=== PATIENT | female | born 1955 | race Caucasian/White ===

== ENCOUNTER 2020-05-14 11:25 | Inpatient (IN) | payer OTHER ==
[~2020-05-14] VITALS: Ht 160 cm; Wt 61.0 kg
[2020-05-14 11:30] VITALS: BP 141/78
--- NOTE | 2020-05-14 11:38 | NUR ---
PT HAS A FIXATION TO HER TEETH PER VALDEMAR, DAUGHTER. STATES THIS HAS HELPED PT COME IN. PT IS ALERT TO SELF ONLY.
[2020-05-14 11:51] LABS: ABSOLUTE NEUTROPHILS 3.5 thou/uL (1.4-8.2); BASOPHILS 0.7 % (0.0-2.0); EOSINOPHILS 4.2 % (0.0-3.0); HEMATOCRIT 37.2 % (37.0-47.0); HEMOGLOBIN 12.8 gm/dL (12.0-15.0); LYMPHOCYTES 32.6 % (24.0-44.0); MCH 30.1 pg (26.0-34.0); MCHC 34.5 g/dL (28.0-37.0); MCV 87.3 fL (80.0-100.0); MONOCYTES 4.5 % (1.0-8.0); PLATELET COUNT 330 thou/uL (150-400); RBC 4.26 mil/uL (4.20-5.00); RDW 13.2 % (10.5-14.5); WBC 6.1 thou/uL (4.0-11.0)
[2020-05-14 11:56] LABS: URINE BILIRUBIN NEGATIVE (Negative); URINE BLOOD 3+ (Negative); URINE CLARITY SL CLOUDY; URINE COLOR YELLOW; URINE GLUCOSE-RANDOM* NEGATIVE (Negative); URINE KETONES NEGATIVE (Negative); URINE NITRITE-REFLEX NEGATIVE (Negative); URINE PROTEIN (DIPSTICK) TRACE (Negative); URINE SPECIFIC GRAVITY >= 1.030 (1.005-1.035); URINE UROBILINOGEN 0.2 E.U./dl (0.2-1.0)
[2020-05-14 11:59] LABS: URINE LEUKOCYTES-REFLEX 2+ (Negative)
[2020-05-14 12:02] LABS: CALCIUM 8.5 mg/dL (8.5-10.1); CREATININE 0.7 mg/dL (0.6-1.0); POTASSIUM 3.2 mmol/L (3.5-5.1)
[2020-05-14 12:09] LABS: ALBUMIN 3.8 g/dL (3.4-5.0); TOTAL BILIRUBIN 0.2 mg/dL (0.2-1.0); TOTAL PROTEIN 7.2 g/dL (6.4-8.2)
[2020-05-14 12:29] LABS: CASTS None Seen /LPF (None Seen); CRYSTALS None Seen /LPF (None Seen); SQUAMOUS 4-10 Moderate /LPF (0-3)
[2020-05-14 12:31] LABS: URINE RBC 3-10 Few /HPF (0-2)
[2020-05-14 16:37] VITALS: BP 141/78
[2020-05-14 17:10] VITALS: BP 128/71; BP 135/84
--- NOTE | 2020-05-14 19:24 | NUR ---
64 YR admitted from home via ER for paranoia, anxiety and being scared all the time. Per daughter moved here from [place] in December 2019 and requiring constant care and attention. Has not received medical care in approximately 15 yrs per daughter. Hx of using ETOH q day at least 2 drinks with DUI in 2002 or 2003. Only surgery daughter is aware of is cholesectomy. Daughter states she has had a panic disorder for 20 yrs and was on Prozac. After stopping Prozac she started drinking ETOH. Alert to name only. Confused with increased ambulation and mild exit seeking. States she smokes 1 pk cigarettes a day. Breath sounds clear and slightly diminished. O2 sat 98%. Nonproductive cough. Color pink with brisk capillary refill and palpable peripheral pulses. Reg HR auscultated. No edema noted. Independent with voiding. Active bowel sounds over large, rounded, soft abdomen. Daughter states last BM was this AM. Ambulates with regular, steady gait. Needs alot of direction for ADL. Dr. Jurado aware of admit.
[2020-05-14 20:13] VITALS: BP 143/101
[2020-05-15 05:50] LABS: ABSOLUTE NEUTROPHILS 9.2 thou/uL (1.4-8.2); BASOPHILS 0.5 % (0.0-2.0); EOSINOPHILS 0.2 % (0.0-3.0); HEMOGLOBIN 12.4 gm/dL (12.0-15.0); LYMPHOCYTES 12.4 % (24.0-44.0); MCH 29.6 pg (26.0-34.0); MCHC 33.4 g/dL (28.0-37.0); MCV 88.8 fL (80.0-100.0); MONOCYTES 4.8 % (1.0-8.0); PLATELET COUNT 300 thou/uL (150-400); POLYS 82.1 % (36.0-66.0); RBC 4.17 mil/uL (4.20-5.00); RDW 13.3 % (10.5-14.5); WBC 11.3 thou/uL (4.0-11.0)
[2020-05-15 06:02] LABS: CALCIUM 9.1 mg/dL (8.5-10.1); CREATININE 0.7 mg/dL (0.6-1.0); MAGNESIUM 1.6 mg/dL (1.8-2.4)
--- NOTE | 2020-05-15 06:05 | NUR ---
Assumed care of pt @ 1900. Pt calm et cooperative at beginning of shift albeit very intrusive with staff et other pts. Took medication whole but chewed her capsule of antibiotic so may need to have medications crushed in future med passes. Ambulates the halls ad christian with steady gait et was going in et out of other pts rooms all evening. Call placed to [employer] media relations director for order to help calm pt as she was getting increasingly agitated et we could not keep her out of other pts rooms. Order received for Geodon 10mg IM X 1 @ 2145. Pt continued to get increasingly agitated et became combative with staff. Pt was also hitting arms on bed rails, raymond-chair arms, staff, et connolly. Further assessment revealed several bruises to wrists et hands. Bruises may have been partially from staff restraining pt from hitting, punching, et kicking. Call placed to [employer] media relations director again to let him know of further aggression. Oreder received for Geodon 10mg IM X 1 @ 2315. Pt did sleep for approximately 30 minutes in raymond-chair in dayroom. Pt then became aggressive again but was also screaming at the top of her lungs. Call placed to [employer] media relations director who ordered Zyprexa 5mg IM X ! @ 0245. Pt was then able to sleep for approximately 1.5 hours. VSWNL. Health assessment with no abnormalities other than previously noted. Unable to assess SI/HI due to pts cognitive deficit but does not appear to be in any acute emotional distress other than previously noted agitation and aggression. Currently resting in raymond-chair in dayroom with eyes closed. Will continue to monitor per protocol.
[2020-05-15 06:31] LABS: POTASSIUM 2.6 mmol/L (3.5-5.1)
[2020-05-15 07:40] VITALS: BP 112/67
--- NOTE | 2020-05-15 09:06 | EKG ---
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: MAHI : 1955 Requested By: Sunday Carlin Order Number: [id number] MD: Asad Braxton Measurements Intervals [place] Rate: 76 P: 47 NM: 150 QRS: -15 QRSD: 85 T: 6 QT: 514 QTc: 579 Interpretive Statements Sinus rhythm Borderline left axis deviation Poor R wave progression Nonspecific ST segment abnormality Prolonged QT interval No previous ECG available for comparison Electronically Signed On 05-15-2020 9:06:09 CDT by Asad Braxton [email or web address] <ELECTRONICALLY SIGNED> By: Asad Braxton MD, [facility] 05/15/20 0906 1201 1201 Asad Braxton MD, [facility] /EPI
[2020-05-15 10:04] LABS: FOLIC ACID 59.7 ng/mL (8.6-58.9)
--- NOTE | 2020-05-15 10:58 | NUR ---
PATIENT WAS IN BED SLEEPING WHEN CARE ASSUMED, WHEN AWOKEN, PATIENT PACING, WANDERING INTO PEERS ROOMS, SHE IS VERY CONFUSED, CAME OUT OF ROOM WITHOUT PANTS OR UNDERWEAR. IT TOOK TWO STAFF TO ASSIST PATIENT PUT ON UNDERWEAR/PANTS. SHE REQUIRES CONSTANT REDIRECTION. PATIENT REFUSED ALL MORNING MEDICATIONS, INCLUDING POTASSIUM, PATIENT'S POTASSIUM LEVEL IS LOW 2.6. DR. MUNOZ NOTIFIED. DR. CALDERON ALSO NOTIFIED OF PATIENT CHOOSING NOT TO TAKE MEDICATIONS ESPECIALLY POTASSIUM. DR. CALDERON STATES HE WILL CALL BACK TO ADDRESS THAT. PATIENT OFFERED BREAKFAST, SHE CONSUMED ABOUT 25%. PATIENT IS NOT ABLE TO RESPOND APPROPRIATELY TO ASSESSMENT QUESTIONS DUE TO COGNITIVE IMPAIRMENT. PATIENT CURRENTLY SITTING IN DAYROOM QUIETLY, NO SIGN OF ACUTE DISTRESS NOTED AT THIS TIME, WILL CONTINUE TO REDIRECT, AND MONITOR FOR SAFETY.
[2020-05-15 12:18] VITALS: BP 112/67
--- NOTE | 2020-05-15 21:31 | H ---
[facility] [place] [address] HISTORY AND PHYSICAL Name: JV JONES Room #: 524B-B ADM IN M.R.#: [id number] Admission: 05/14/20 Attend Phys: Mukesh Jurado DO Discharge: Date of : 55 Report #: [id number] THIS REPORT FOR: cc: CHELITA - No family physician/PCP FAM - No family physician/PCP Mukesh Jurado DO ~ CC: Mukesh MERLOS physician/PCP DATE OF SERVICE: 05/15/2020 INPATIENT PSYCHIATRIC EVALUATION ATTENDING PHYSICIAN: Mukesh Jurado DO DIRECTOR OF PATIENT CARE: Dov Clark MD REASON FOR ADMISSION: Dementia with behavioral disturbance. SOURCES OF INFORMATION: ER notes, brief interview with the patient and extended telephone conversation with her daughter, Emilie Jones. CHIEF COMPLAINT: Unspecified. HISTORY OF PRESENT ILLNESS: This is a 64-year-old female who is residing in the [place] area since December 2019. There was an attempted admission on the patient at the [facility], that is, [facility]; however, the patient was uncooperative with a stay in there, exit seeking and apparently the facility recommended her to come to [facility] for Geriatric Psychiatry evaluation and treatment. The patient was brought up from [place] at the beginning of the coronavirus pandemic by her daughter Emilie. Emilie works at the [employer]. 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 The patient unfortunately was diagnosed with Alzheimer's related dementia in 2017. The patient has had a difficult life with longstanding alcoholism and possible diagnosis of bipolar disorder. She is . The patient has a son from a prior relationship and then the daughter from a different father, the patient was living in the [facility]. Apparently, she has been taken care by a "friend" and daughter states she was on a wait list for Medicaid Facility, but the daughter felt this would be futile in [place]. FAMILY HISTORY: Her father had Alzheimer's disease. Her mother had bipolar disorder. The last time she drank is unclear, but definitely since December 2019. Additional information gleaned from the Emergency Room is as follows: Apparently, she lives with the son in [place] for more than a decade. The patient had become malnourished and unkempt when she was brought up from [facility] [address] [place] [address] HISTORY AND PHYSICAL Name: NETTE JONESN Room #: 524B-B ADM IN M.R.#: [id number] Admission: 05/14/20 Attend Phys: Mukesh Jurado DO Discharge: Date of : 55 Report #: [id number] [place]. When they moved up initially in December, they place the mother in her own apartment and a daughter would spend 8-10 hour stay with her. She states that it was at this time that she realized that her mother could not really care for herself. She had to spent some extra time in the ER for the COVID PCR, although had additional psychiatric history of panic disorder. SURGICAL HISTORY: Cholecystectomy. SUBSTANCE USE: Disorder for alcohol, sounds like moderate to severe. ALLERGIES: No known allergies. SOCIAL HISTORY: She smokes 1 pack per day. I did put her on the nicotine protocol. REVIEW OF SYSTEMS: From the ER, CONSTITUTIONAL: Denies fever, chills, malaise or unexplained weight change. EYES: Denies eye pain, visual change or discharge. HENT: Denies hearing changes, ear drainage, ear infections, ear pain, neck pain or neck stiffness. RESPIRATORY: Denies cough, shortness of breath, hemoptysis or respiratory distress. CARDIOVASCULAR: Denies chest pain, chest pain with exertion or edema. MUSCULOSKELETAL: Denies back pain, joint pain, muscle weakness or myalgias. SKIN: Denies rash. NEUROLOGIC: Denies weakness, headache, loss of consciousness. Denied SI or HI, or hallucinations. LABORATORY DATA: EKG done in the ER showed QTc of 579, QRS 85, SC interval 150, rate of 76 in sinus rhythm. TSH was high at 10.877. Other laboratories; sodium 146, potassium 3.2, it is actually lower today at 2.6. Chloride 109, bicarbonate 27, anion gap 10, BUN 15, creatinine 0.7, estimated GFR 84, glucose 110, calcium 8.5, total bilirubin 0.2, AST 15, ALT 16, alkaline phosphatase 67, total protein 7.2, albumin 3.8, which is actually within normal limits. White count 6.1, H and H 12.8 and 37.2, and platelet count 330. Urinalysis showed 3+ blood, 2+ leukocyte esterase, 16-25 leukocytes per high power field, moderate bacteria. Culture has been sent. The patient was placed on cephalexin. PHYSICAL EXAMINATION: VITAL SIGNS: This morning, temperature 36.6, pulse 86, respirations 16, blood pressure 112/67, O2 sat 94%. MUSCULOSKELETAL: Disheveled. Normal gait and station. She appears to have a lesion on her nose. Given her history in [place] would be concerned about basal cell carcinoma; however, now this is not the time to attempt to biopsy that lesion. [facility] [address] [place] [address] HISTORY AND PHYSICAL Name: JV JONES Room #: 524B-B ADM IN M.R.#: [id number] Admission: 05/14/20 Attend Phys: Mukesh Jurado, DO Discharge: Date of : 55 Report #: [id number] MENTAL STATUS EXAMINATION: This is a well-developed, somewhat disheveled female appearing older than stated age. Attention impaired. Concentration impaired. Speech slow, soft. Thought process linear and very limited. Thought content focused on environment. Otherwise, generalized poverty of thought. Some psychomotor agitation. She is knocking on doors around unit. mood/affect, anxious costricted, congruent No psychomotor retardation. Denied SI or HI. Denied hopelessness or helplessness. Memory is grossly impaired, but did not formally test it. Insight impaired, judgment impaired. Fund of knowledge well below average. FORMULATION: A 64-year-old female brought in by her family for inpatient evaluation. Current medications ordered. PLAN: Evaluate, stabilize, obtain collateral. ESTIMATED LENGTH OF STAY: 10-14 days. Current medications orders were cyanocobalamin 1000 mcg oral daily, 1000 mcg IM daily for 5 days, it looks like she refused that. Pantoprazole 20 mg p.o. daily, Depakote 750 mg p.o. at bedtime we will start that tonight. Olanzapine 2.5 mg p.o. b.i.d. with IM backup, starting that now. Potassium chloride 40 mEq p.o. x 2 doses, she did take one dose. Nicotine patch daily for now. Otherwise house PRNs. Regarding the patient's capacity to make healthcare decisions, she is lacking as her DPOA for healthcare DPOA, if exist, for general financial measures is inactive. Time spent on this case is 60 minutes, greater than 50% of time was in counseling and coordination of care. STRENGTHS: She is insured, has DPOA and family support. WEAKNESSES: Longstanding alcoholism. DIAGNOSES: Major Neurocognitive Disorder likely due to chronic alcoholism, ? Alzheimers Pathology with Bhevaioral Disturbance, Unspecified Psychosis, Elevated TSH- r/o hashimotos disease showing signs of failure to thrive. The cephalexin has [facility] [address] [place] [address] HISTORY AND PHYSICAL Name: NETTE JONESN Room #: 524B-B ADM IN M.R.#: [id number] Admission: 05/14/20 Attend Phys: Mukesh Jurado DO Discharge: Date of : 55 Report #: [id number] been discontinued by the hospitalist. We will proceed with evaluation and care of her. <ELECTRONICALLY SIGNED> By: Mukesh Jurado DO 05/15/20 2131 1403 1431 Mukesh Jurado DO /nt
--- NOTE | 2020-05-16 05:12 | NUR ---
Assumed care of pt @ 1900. Pt anxious et agitated most of shift. Pt took medications crushed in yogurt without difficulty. Ambulates the halls ad christian with steady gait et tends to intrusively go into other pt's rooms. Can be mildly aggressive when redirected but tends to get more aggressive as the shift goes along. VSWNL. Health asessment with no abnormalities other than previously noted. Unable to assess SI/HI due to pt's cognitive deficit but does not demonstrate any signs or symptoms of acute emotional distress at present time. Pt became increasingly agitated as the noc went along. Provider patient observation assistant ordered olanzapine 7.5mg IM @ 2233. Provider called back after one hour to check the status of the pt. Pt was still agitated so provider ordered Haldol 5mg IM et Ativan 1mg IM to be administered at 2354. Currently client is resting in vanessa-chair in dayroom with eyes closed. Will continue to monitor per protocol.
[2020-05-16 06:54] LABS: BASOPHILS 0.5 % (0.0-2.0); EOSINOPHILS 2.6 % (0.0-3.0); HEMOGLOBIN 12.9 gm/dL (12.0-15.0); LYMPHOCYTES 22.3 % (24.0-44.0); MCHC 33.9 g/dL (28.0-37.0); MCV 88.6 fL (80.0-100.0); MONOCYTES 8.2 % (1.0-8.0); PLATELET COUNT 303 thou/uL (150-400); POLYS 66.4 % (36.0-66.0); RBC 4.29 mil/uL (4.20-5.00); WBC 7.5 thou/uL (4.0-11.0)
[2020-05-16 07:14] LABS: CALCIUM 9.1 mg/dL (8.5-10.1); CREATININE 0.7 mg/dL (0.6-1.0); MAGNESIUM 2.1 mg/dL (1.8-2.4)
[2020-05-16 09:15] VITALS: BP 126/65
--- NOTE | 2020-05-16 14:23 | NUR ---
Sleepy this AM. Alert to name only. Confused speech when not sleeping. Regular, steady gait when ambulating. Denies SI/HI. No speech/behavior suggestive of SI/HI. Occassionally startles when disturbs but is otherwise calm and compliant. Took meds crushed in yogurt. Crossed arms in front of herself with no initiation of eating at breakfast but ate 100% when fed. Ate independently at lunch and ate 70% per [employer]. Currently up ambulating in halls. Breath sounds clear. RR 20-24 without s/o resp distress. T100.7 and sweater removed, temp then 98.3. Reg HR auscultated. Color pink with brisk capillary refill and palpable peripheral pulses. No edema noted. Yellow urine per toilet with medium yellow formed stool. Active bowel sounds over soft, rounded abdomen. Large lipoma per L shoulder, nicotene patch place on R upper back. Scab per R nostril. Slept in recliner most of AM, currently watching TV with peers or ambulating in halls, redirectable.
[2020-05-16 20:27] VITALS: BP 134/74
--- NOTE | 2020-05-17 05:16 | NUR ---
Assumed care of pt @ 1900. Pt calm et cooperative this shift et less intrusive than on previous noc shifts. Took medication crushed in yogurt without difficulty. Ambulates the halls ad christian with steady gait. VSWNL. health assessment with no abnormalities noted at present time. Unable to assess SI/HI due to cognitive deficit but does not demonstrate any signs or symptoms of emotional distress at present time. Currently resting in recliner in dayroom with eyes closed. Will continue to monitor per protocol.
--- NOTE | 2020-05-17 10:30 | NUR ---
Assumed care 0700. Self feeding breakfast in dayroom. No offered complaints. Speech is nonsensical, rapid and difficult to understand. Only a few words are understood and do not follow a clear train of thought. Does not display behavior of suicidal or homicidal nature. Exacting determination of what patient says with regards to SI/HI are nonspecific. She has a steady gait while walking in the hallway. She takes her meds crushed in yogurt without difficulty.
--- NOTE | 2020-05-17 13:56 | HC ---
[facility] [place] [address] CONSULTATION Name: JV JONES Room #: 524B-B ADM IN M.R.#: [id number] Admission: 05/14/20 Attend Phys: Mukesh Jurado, Discharge: Date of : 55 Report #: [id number] THIS REPORT FOR: cc: CHELITA Winkler family physician/PCP CHELITA - Cathi family physician/PCP Sandrita Reddy MD ~ CC: Mukesh MERLOS physician/PCP DATE OF SERVICE: 05/17/2020 ENDOCRINE CONSULTATION NOTE CONSULTING PHYSICIAN: Dr. Clark. REASON FOR CONSULTATION: Hypothyroidism, Gogo's thyroiditis. HISTORY OF PRESENT ILLNESS: This is a 65-year-old female patient whose medical background is significant for dementia and who has presented in the first place due to worsening agitation and behavioral changes. It appears that the patient was diagnosed with early-onset Alzheimer's dementia and has moved back to [place] from [place] a few months ago as she had become less able to take care of herself. She was placed on a long-term care facility the day prior to admission, but was sent to the ER the following day due to worsening agitation and behavioral changes. The patient is not communicative and when asked questions, she answers indiscriminately. The history was obtained from her medical records, both electronic and paper. The patient was investigated for multiple medical issues including thyroid dysfunction and was found to have evidence of hypothyroidism. When questioned about that, again, the patient did not give an indication as to whether or not she had prior knowledge of thyroid disease. She was not able to delineate whether or not she had received thyroid medications in the past. The patient did not answer as to whether or not she had fatigue, weight changes, skin or hair changes, heat or cold intolerance, neck fullness, pain, or compressive symptoms. REVIEW OF SYSTEMS: PSYCHIATRIC: Behavioral changes and agitation, worsening communication skills and self-care skills. PULMONARY: Negative for shortness of breath, cough, or hemoptysis. CARDIAC: Negative for chest pain, palpitations, or syncope. NEUROLOGY: Negative for seizure activity, loss of consciousness, severe or frequent headaches. [facility] [address] [place] [address] CONSULTATION Name: NETTE JONESN Room #: 524B-B ADM IN M.R.#: [id number] Admission: 05/14/20 Attend Phys: Mukesh Jurado DO Discharge: Date of : 55 Report #: [id number] GASTROINTESTINAL: Negative for abdominal pain, vomiting. DERMATOLOGIC: Negative for rash, discoloration, ulceration, or other major abnormalities. Otherwise, review of systems noncontributory other than those mentioned in HPI. PAST MEDICAL HISTORY: 1. Dementia, agitation. 2. Hyponatremia on presentation. 3. Hypothyroidism diagnosed during this hospital stay. 4. GERD. OUTPATIENT MEDICATIONS: Include pantoprazole 20 mg daily, nicotine patch 20 mg once daily, mag oxide 800 mg daily, olanzapine, ziprasidone, acetaminophen p.r.n. ALLERGIES: No known drug allergies. FAMILY HISTORY: Noncontributory. SOCIAL HISTORY: As noted above, the patient has recently moved from [place] to [place]. She had been transferred to a long-term care facility the day prior to her admission. She is a smoker, no documentation of alcohol use. PHYSICAL EXAMINATION: GENERAL: A female patient, does not appear to be in pain or distress. VITAL SIGNS: Blood pressure is 134/74 mmHg, heart rate is 120 beats per minute, respirations 20 per minute, temperature 37.3 degrees Celsius. CONSTITUTIONAL: The patient is sitting upright, appears relatively comfortable, not in apparent distress. HEENT: Anicteric sclerae. Intact extraocular motions. NECK: Supple. Thyroid tissue is palpable, irregular in texture, nontender, no lymphadenopathy. CHEST: Shows moderate air entry with scattered rales. HEART: Regular rate and rhythm without murmurs or gallops. ABDOMEN: Soft, lax. No guarding. Active bowel sounds. EXTREMITIES: Lower extremity exam: No edema, skin breaks, or ulcerations. NEUROLOGIC: Awake, alert, but confused and appropriate responses to verbal stimuli, moves all extremities spontaneously. PSYCHIATRIC: Awake, alert, but confused and disoriented, inappropriate thought contents, flat mood and affect. LABORATORY DATA: Sodium 145, potassium 4.0, chloride 109, CO2 of 25, anion gap 11, BUN 15, creatinine 0.7. Sodium on presentation was 146, AST 13, total bilirubin 0.2, calcium 9.1, alkaline phosphatase 67, ALT 16, total protein 7.2, albumin 3.8, EGFR 84. Free T4 0.9. White blood count 7.5, hemoglobin 12.9, [address] [address] CONSULTATION Name: NETTE JONESN Room #: 524B-B ADM IN M.R.#: [id number] Admission: 05/14/20 Attend Phys: Mukesh Jurado, Discharge: Date of : 55 Report #: [id number] hematocrit 38, platelets 303. TSH 10.877. Folate is 59.7. Vitamin B12 is 253. TPO antibodies 84. ASSESSMENT AND PLAN: 1. Gogo's thyroiditis. The patient's documentation of TPO antibodies confirms the outlook of Gogo's thyroiditis with a resultant thyroid dysfunction. At this point of dysfunction, the patient is indicated for thyroid hormone replacement therapy as will be discussed below. 2. Hypothyroidism. The patient has hypothyroidism, likely a new diagnosis as a result of Gogo's thyroiditis with a positive TPO antibody titers. Her TSH crosses the threshold into overt hypothyroidism. Unfortunately, the patient is unable to provide a meaningful history and therefore, I am unable to assess the impact of this diagnosis clinically. However, I certainly see value and initiating thyroid hormone replacement therapy as this would be more likely to ensure optimal metabolic processes including weight stability, avoidance of lipid disorders, and other potential complications. An appropriate starting dose would be levothyroxine 50 mcg daily. Periodic thyroid function study followup will be required, namely with thyroid function studies done in 6 weeks to ensure that she obtains a TSH target of between 1 and 3. Prior to initiating active thyroid hormone replacement therapy, I would like to obtain a random cortisol to rule out the possibility of adrenal insufficiency prior to actively replacing the patient with levothyroxine. 3. Adrenal insufficiency. The patient does not give any specific indication of this issue. However, with her limited communication, I would believe that it is better measures to obtain a random cortisol level, rule out adrenal insufficiency, then proceed with levothyroxine therapy once this is secured, I have reviewed the patient's electronic medical records, clinical care notes, paper records, laboratory studies, and other pertinent information for over 35 minutes in addition to my encounter with the patient. I certainly appreciate this consultation by Dr. Clark. <ELECTRONICALLY SIGNED> By: Sandrita Reddy MD 05/17/20 1356 [id number] 1326 MD adonis Rios
--- NOTE | 2020-05-17 18:39 | NUR ---
Patient is walking up and down halls, wandering into several other patients rooms needing redirection to leave those rooms. She mutters to herself in indistinct words/utterances. Once she had a nonproductive loose cough. No complaints of pain or distress. She is exit seeking tries to go out when staff is leaving the unit. She watches the doors. Occasionally she tries to say something to a few of the other patients but they cannot understand her.
--- NOTE | 2020-05-17 18:58 | NUR ---
Headache abated. Occasionally conversant with peers. watched some TV, read a book. o further c/o's.
[2020-05-17 19:46] VITALS: BP 149/75
[2020-05-18 00:05] VITALS: BP 149/75
--- NOTE | 2020-05-18 04:38 | NUR ---
Assumed care of patient this pm shift. Patient calm and cooperative with RN but very forgetful. Patient is seen going into the rooms of other patients and needs constant attention and redirection. Patient is also exit seeking. Patient denies pain. Patient denies si. Patient is very confused. Patient takes medications as scheduled but needs encouragement to stay on task. Patient does not show any signs of acute distress. Patient is not a falls risk. Patient ambulates with a steady gait. Patient is alert and oriented to self only. Patients affect is blunted. Patient recieved an IM injection this shift due to agitation/anxiety. We will continue to monitor patient per hospital protocol.
[2020-05-18 07:30] VITALS: BP 118/60
--- NOTE | 2020-05-18 07:30 | NUR ---
PT RESTING IN ESTUARDO CHAIR AT THIS TIME WITH MOY ROSENBAUM FOR SAFETY.
[2020-05-18 07:32] VITALS: BP 118/60
--- NOTE | 2020-05-18 12:09 | NUR ---
PT STILL SLEEPING IN BED AT THIS TIME.
--- NOTE | 2020-05-18 14:11 | NUR ---
PT STILL SLEEPING AT THIS TIME.
--- NOTE | 2020-05-18 14:25 | NUR ---
SKY contacted Emilie to inquire what she would like pt's d/c plan to be. No answer. SKY lft msg.
--- NOTE | 2020-05-18 14:27 | NUR ---
PT AWOKE AND USED THE BATHROOM. PT CONT. OF URINE. PT WAS UNSTEADY AT FIRST WITH GAIT. WALKED PT TO DINING ROOM AND GAVE WATER AND ICE CREAM. PT ATE ICE CREAM AND FOLLOW NURSE TO DESK AND WANTED TO COME INTO THE DOOR. PT TALKING SOFTLY.
--- NOTE | 2020-05-18 14:30 | NUR ---
Assess due to low kimani score. Admit to [facility] for agitation, acute cystitis. Hx advanced alzheimers. Visit this afternoon, was sitting in dining area eating ice cream for a snack. Unable to answer questions. Meal intake has been variable 10-75% past few days since admit. B12 on low side 353, starting on supplementation. Wt hx unavailable, BMI adequate 23.9. Start on oral supplement Ensure Enlive until consistent po intake is established. Low nutrition risk
--- NOTE | 2020-05-18 14:51 | NUR ---
ATTEMPTED TO GIVE MEDS WHOLE, PT DIDN'T UNDERSTAND HOW TO TAKE THEM. CRUSHED MEDS THIS RADIOLOGY SPECIAL PROCEDURE TECH COULD AND PT TOOK IN ICE CREAM, PT WAS RESISTIVE AT FIRST THEN DID TAKE A BITE. PT GIVEN ANTIBIOTIC IN HER HAND AND SHE WAS ENCOURAGED TO TAKE MED, PT DID AND DRANK WATER. PT WANTING TO GET OUT OF HERE AND WANTED THIS RADIOLOGY SPECIAL PROCEDURE TECH TO OPEN THE DOOR.
--- NOTE | 2020-05-18 17:23 | NUR ---
PT UP WANDERING IN ROOMS AND DINING ROOM. FOLDING TOWELS. PT AT FIRST REFUSED PUDDING WITH MEDICATION IN IT. HAD TO APPROACH HER X3 BEFORE SHE TOOK IT. GAVE PT REST OF PUDDING TO EAT. PT EATING PUDDING.
--- NOTE | 2020-05-18 23:41 | NUR ---
Care of chad assumed at 1915. Patient is wandering the halls, going into others patients' rooms. Largely unredirectable, requiring staff to physically redirect, to which patient becomes resistive and combative. Patient requires constant redirection and either does not comprehend, or chooses to ignore verbal redirection. This takes much needed time away from other patients. After many attempts, compliance is obtained with HS meds crushed and placed in yogurt. Patient continues to enter others' rooms. Placed in recliner as a distraction, which lasts a mere 3 minutes. Due to logistical concerns, patient is moved to room 521 bed A. Patient is taken to bed at 2230.
[2020-05-19 07:53] VITALS: BP 99/61
[2020-05-19 08:30] VITALS: BP 99/61
--- NOTE | 2020-05-19 09:07 | NUR ---
PT WANDERING AROUND UNIT AFTER BREAKFAST. PT DIDN'T WANT TO TAKE MEDICATION WHOLE. PT SPIT OUT ANTIBIOTIC. CRUSHED MEDS THAT COULD BE CRUSHED AND PT TOOK WITH PUDDING. PT LUNGS CLEAR. PT CONFUSED AND SOFT SPOKEN. PT WANDERS IN OTHER ROOMS.
--- NOTE | 2020-05-19 10:20 | NUR ---
PT NEEDED TO USE BATHROOM. PT ROOMMATE IN BATHROOM. PT PULLED DOWN PANTS AND HAD BM ON SIDE OF HER BED. PT BM WAS LOOSE. PT ALLOWED STAFF TO CHANGE HER WITHOUT ANY ISSUES.
--- NOTE | 2020-05-19 14:15 | NUR ---
PT TOOK MEDICATION IN PUDDING. PT DID FINISHE REST OF PUDDING GIVEN TO HER.
[2020-05-19 19:31] VITALS: BP 168/85
--- NOTE | 2020-05-20 07:07 | NUR ---
Pt confused and disoriented x4. Pt was in the dayroom at time of assessment. Unable to respond to questions or follow commands. Pt makes unintelligible sentences. Wandering behavior continues. Pt however, for negative of aggression and agitation this shift. Pt took meds crushed in pudding. Pt slept 5.6 hours this shift. Pt is currently awake and sitting in the dayroom.
[2020-05-20 07:52] VITALS: BP 132/55
--- NOTE | 2020-05-20 10:37 | NUR ---
SKY contacted Emilie who said she has been working with an associate attorney named Richelle Lazo on placement and medicaid for pt. She said pt was admitted to [facility] through a medicaid pending status. She does not have a copy of pt's medicaid application or anything. Richelle # is [phone] SKY contacted Richelle's law firm and spoke with Garo in regards to pt's placement options. He said that they cannot apply for mediciad for pt until pt has placement. SKY explained that it is the opposite for hospital discharges; pt cannot be placed until she is in Medicaid pending status unless pt will be private pay. SKY asked if they have NH placements that they contract with. He said no they do not. He said he will speak with Richelle today in regards to pt's next steps. He will contact SKY either this afternoon or tomorrow morning; he said he understands this is a time sensitive issue. SKY contacted Emilie again and provided an update. SKY team will continue to follow pt during her stay on this unit.
--- NOTE | 2020-05-20 16:00 | NUR ---
Assumed care at 0700. Patient has been a constant wanderer into other patient's rooms. In one room it was reported that she actually got into bed with a newly admitted patient. Patient was groggy for breakfast, declining to eat even though food was cut up and nurse attempted to feed. Patient was wandering and would not sit down to eat. At lunch she continued wandering and would not again sit to eat-would not let staff assist her to eat either. One other time she went into the room of a male patient (not in the room) and started taking her clothes off. She is oriented only to her name most of the time and at times she does not respond to her time. She was uncooperative for the nursing physical assessment of auscultation, palpation and verbal questions.
[2020-05-20 19:27] VITALS: BP 131/101
--- NOTE | 2020-05-21 02:25 | NUR ---
Care of patient assumed at 1915. Patient is wandering in and out of the day room. Compliant with request for her to sit for assessment. Oriented to self only. Seemingly hypersexual this evening, attempting to grope staff. HS, LS, BS normal. Patient is confused and conversation does not fit situation or topic. Compiant with HS meds crushed and mixed in pudding. Escorted to bed at 2200 and is sleeping shortly after.
[2020-05-21 06:19] LABS: HEMATOCRIT 36.8 % (37.0-47.0); HEMOGLOBIN 12.4 gm/dL (12.0-15.0); MCH 30.1 pg (26.0-34.0); MCHC 33.7 g/dL (28.0-37.0); MCV 89.2 fL (80.0-100.0); RBC 4.12 mil/uL (4.20-5.00); WBC 6.2 thou/uL (4.0-11.0)
[2020-05-21 07:03] LABS: CALCIUM 9.1 mg/dL (8.5-10.1); CREATININE 0.6 mg/dL (0.6-1.0); MAGNESIUM 2.2 mg/dL (1.8-2.4); POTASSIUM 3.3 mmol/L (3.5-5.1)
[2020-05-21 09:06] VITALS: BP 91/43
--- NOTE | 2020-05-21 12:58 | NUR ---
SKY received a v. msg from [place] with [employer] stating that he has some clarity on pt's situation and wanted to go over how he can help with placement. SKY returned his call and was told he was at lunch. SW team will continue to follow pt during her stay on this unit.
--- NOTE | 2020-05-21 19:51 | NUR ---
SLEPT LATE THIS AM DID SIT UP BRIEFLY TO TAKE AM MEDS BEFORE FALLING BACK TO SLEEP. CONVERSATION INCOHERENT-FRAGMENTED. DID EVENTUALLY GET UP OUY OF BED AT APPROX 1100 AFTER BEING ASSISTED WITH DRESSING. INTRUSIVE -ENTERING PEERS ROOMS AND IS DIFFICULT TO REDIRECT. GAIT IS STEADY WITHOUT ASSISTIVE DEVICES. ANGRY FACIAL EXPRESSION. NO REPORTED COMPLAINTS DURING AM PHYSICAL ASSESSMENT ALTHOUGH DID ATTEMPT TO WALK AWAY MID ASSESSMENT X 2. REFUSED BREAKFAST AND LUNCH BUT DID EAT APPROX 50 PERCENT OF SUPPER. BLADDER SCAN COMPLETED AT 1400 AFTER PT VOIDED MODERATE AMOUNT DARK YELLOW URINE IN TOILET-LESS THAN 75 CC IN BLADDER PER SCAN.
[2020-05-21 20:32] VITALS: BP 151/75
--- NOTE | 2020-05-22 01:56 | NUR ---
Care of patient assumed at 1915. Patient is wandering around the unit, in and out of the day room as well as any open door she walks by. Requires cosntant supervision and redirection to prevent her from going into other patients' rooms, invading personal space, etc. Does cooperate with assessment. Oriented to self only. Most of responses to assessment questions are nonsensical and broken sentences. When she does speak in full sentences the content does not fit the conversation. Patient takes HS meds whole with some difficulty. Able to get her to lay in bed after having to block several attempts from patient to hug, grope, or kiss this nurse. Patient is sleeping when checked on at 2300.
[2020-05-22 05:06] LABS: ABSOLUTE NEUTROPHILS 4.4 thou/uL (1.4-8.2); BASOPHILS 0.3 % (0.0-2.0); EOSINOPHILS 5.7 % (0.0-3.0); HEMATOCRIT 36.9 % (37.0-47.0); HEMOGLOBIN 12.6 gm/dL (12.0-15.0); LYMPHOCYTES 20.4 % (24.0-44.0); MCH 29.8 pg (26.0-34.0); MCV 87.7 fL (80.0-100.0); PLATELET COUNT 260 thou/uL (150-400); POLYS 64.6 % (36.0-66.0); RBC 4.21 mil/uL (4.20-5.00); WBC 6.8 thou/uL (4.0-11.0)
[2020-05-22 05:35] LABS: CALCIUM 8.9 mg/dL (8.5-10.1); CREATININE 0.7 mg/dL (0.6-1.0); POTASSIUM 3.5 mmol/L (3.5-5.1)
[2020-05-22 08:20] VITALS: BP 151/75
--- NOTE | 2020-05-22 09:17 | NUR ---
PT TOOK KDUR WITH WATER. CRUSHED HALDOL AND PUT IN YOGART. PT ATE HALF OF YOGART. PT LUNGS CLEAR. PT UP AD CELESTE. PT DOES GO INTO OTHERS ROOMS AND INVADES OTHERS SPACE. PT DOES SIT ON COUCH AT TIMES.
--- NOTE | 2020-05-22 12:15 | NUR ---
AN AIDE WAS TRYING TO GET PT TO DRINK HER ENSURE, SHE BATTED HER ARM BACK AND ENSURE GOT ALL OVER AIDES SHIRT. PT THEN GOT UP AND WAS TRYING TO CLEAN UP AREA WITH A WASHRAG. PT WALKING AROUND AND GIVING HER LUNCH PLATE TO THIS SHIRT TURNER AND STATED ISN'T IT PRETTY. PT ALSO TAKING PLATES OFF TRAYS. PT LIKES TO DRINK OTHERS WATER ALSO.
[2020-05-22 20:00] VITALS: BP 129/70
--- NOTE | 2020-05-23 05:16 | NUR ---
Assumed care of pt @ 1900. Pt calm et cooperative this shift. Took medications crushed in yogurt without difficulty. Ambulates the halls ad christian with steady gait. VSWNL. Health assessment with no abnormalities noted at present time. Unable to assess SI/HI due to cognitive deficit but pt does not demonstrate any signs or symptoms of emotional distress at present time. Currently resting in raymond-chair in dayroom with eyes open. Will continue to monitor per protocol.
[2020-05-23 07:29] VITALS: BP 144/84
--- NOTE | 2020-05-23 11:20 | NUR ---
Assumed care 0700. Offers no coomplaints. Went to rest/doze in her bed shortly after AM medications were given. She misses the toilet with her urine at times. She has wet her hair. Herconversation is hard to undeerstand as she mumbles/whispers at times.
--- NOTE | 2020-05-23 15:57 | NUR ---
Patient has been in bed a majority of the afternoon. Attempted bed weights x 3 without success as notifications of patient not in bed keep coming up. X3 staff have attempted to pull/move her down in the bed without success. Pt. wanted to sleep. Therefore 4 siderails elevated and more frequent checks by RN were made. When she has been engaged in conversation with this lead technical writer, patient had disorganized language, mumbling. Very few words were understood. Her wandering has dramatically reduced-only twice in the AM before lunch. One time of being redirected patient became agitated trying to fight staff who were intervening.
--- NOTE | 2020-05-23 22:56 | NUR ---
PT WANDERING TAN, INTO PEERS ROOMS, TRYING ALL DOORS IN HALLS, OPENING CABINETS IN DAY ROOM, PICKING IN TRASH, PICKING UP BEVERAGES LEFT ON TABLES IN DINING ROOM. COVERING UP PEERS FEET WITH BLANKETS. BLUNTED AFFECT, GOOD EYE CONTACT, WHISPERING IN NURSES EAR. PRN PROVIDED TO ASSIST WITH DECREASED ANXIETY. PT STATED TO NURSE WHEN THEY WERE SITTING IN DAY ROOM WATCHING TV THAT SHE WAS SCARED. BLUNTED AFFECT, GOOD EYE CONTACT, PT PROVIDED NURSE WITH IMAGINARY ITEM IN HER HAND TO NURSES HAND. COMPLIANT WITH MEDS AND WATER. GAIT STEADY, PT STANDS UPRIGHT.
[2020-05-24 05:25] LABS: HEMATOCRIT 37.6 % (37.0-47.0); HEMOGLOBIN 12.8 gm/dL (12.0-15.0); MCH 30.4 pg (26.0-34.0); MCHC 34.1 g/dL (28.0-37.0); MCV 89.2 fL (80.0-100.0); RBC 4.21 mil/uL (4.20-5.00); RDW 13.3 % (10.5-14.5); WBC 5.6 thou/uL (4.0-11.0)
[2020-05-24 05:37] LABS: CALCIUM 9.2 mg/dL (8.5-10.1); CREATININE 0.7 mg/dL (0.6-1.0); POTASSIUM 3.2 mmol/L (3.5-5.1)
--- NOTE | 2020-05-24 16:04 | NUR ---
Assumed care 0700. Slept several hours in the AM. Declined to eat breakfast, gave no reason. Declined VS x 2, giving no reason. Continues to increase her wandering into other people's rooms despite she has been shown her room multiple times. Has been in other patient's beds, moving their covers, trying to push other patients in wheelchairs, exit seeking-pushig exit doors, jiggling locks to various office doors. Would not allow herself to be fed, nor would she feed herself stating she was nauseated. Given lemon redding soda taking only a few sips.
--- NOTE | 2020-05-24 16:45 | NUR ---
Constantly exit seeking, wandering into other patient rooms. Got in a male patient's bed. Going into various rooms, playing with their covers/personal belongings. constantly trying the doors, jiggling door handles. Is not redirectable. Has continued to be shown her room with the room number on it and which is her bed. it does not stick with this patient to be shown repeatedly which is her bed here in the hospital. She is not eating appropriately at meals ie very little. She continues to mumble/whisper and does not make sense. A few times she has gotten belligerent and was angry/combative with staff who was attempting to lure her out of other patients rooms.
--- NOTE | 2020-05-24 18:59 | NUR ---
One time PRN of Ativan 1 mg. given around 1800 due to incessant wandering into others' rooms. X1 she voided on the floor. X1 she voluntarily went into her bed and stripped clothing from waist down. Ativan had a small amount of effect. At least she went into her bed.
--- NOTE | 2020-05-25 03:38 | NUR ---
ASSUMED CARE OF PT AT 1900HRS. PT IS ALTERT BUT CONFUSED. PT REFUSED PM VITALS. PT WAS SEEN WONDERING AND ATTEMPTING TO ENTER OTHERS' ROOM. PT TOO ALL HS MEDS CRUSHED WITH PUDDING. PT WAS SEEN TO BE TALKING TO HERSELF AND NOT MAKING SENSE. PT WAS ABLE TO GET COMFORTABLE AND SLEEP PART OF THE SHIFT. WILL CONTINUE TO MONITOR.
[2020-05-25 07:37] VITALS: BP 124/64
--- NOTE | 2020-05-25 14:29 | NUR ---
SKY spoke with Garo who said pt has now been approved for [employer]. Her DCN number is [id number]. SKY contacted Emilie and provided her an update on pt. SKY advised Emilie to utilize [employer] as opposed to applying for [place] Medicaid. Emilie agreed. SKY sent her a listing of facilities near her via Medicare.gov website to [email or web address]. SKY team will continue to follow pt during her stay on this unit.
--- NOTE | 2020-05-25 14:40 | NUR ---
IN DAYROOM UPON INITIAL ASSESSMENT THIS AM. IS SITTING QUIETLY AT TABLE WITH PEERS UPON INITIAL APPROACH BUT SITS FOR ONLY BRIEF PERIODS OF TIME BEFORE GETTING UP AND PACING IN HALLWAYS. WILL AT TIMES ENTER PEERS ROOMS BUT SO FAR HAS BEEN EASILY REDIRECTABLE. MINIMALLY VERBAL BUT WAS ABLE TO TELL STAFF "I.M HUNGRY" OR "NO" "YES" ANXIOUS FACIAL EXPRESSION. DID TAKE AM MEDS WITH COAXING FROM NURSING STAFF-WAS RELUCTANT TO DO SO AND DID NEED COAXING AND AFTER THREE BITES WALKED AWAY WITH ANGRY FACIAL EXPRESSION, GAIT IS STEADY WITHOUT ASSISTIVE DEVICES.
[2020-05-25 20:27] VITALS: BP 140/89
[2020-05-26 06:02] LABS: CALCIUM 9.2 mg/dL (8.5-10.1); CREATININE 0.8 mg/dL (0.6-1.0); POTASSIUM 3.5 mmol/L (3.5-5.1)
[2020-05-26 09:05] VITALS: BP 156/76
--- NOTE | 2020-05-26 15:10 | NUR ---
INCREASED AGITATION THIS AM AND SO FAR THROUGHOUT THIS SHIFT-WANDERING INTO PEERS ROOMS TAKING OFF HER BRIEF AND PANTS AND LAYING ON THEIR BEDS-WHEN STAFF ATTEMPTS TO REDRESS HER AND PRTOVIDE INCONTINENT CARE SHE BECOMES COMBATIVE-RESISTIVE. URINE DOES HAVE VERY STRONG ODOR AND IS NOTED TO HAVE A RAISED RED RASH TO INNER THIGHS BILATERALLY. DR ARCOS INFORMED OF SUSPECTED UTI AND ORDERS RECEIVED TO OBTAIN UA IF ABLE-HAT COLLECTION CONTAINER PLACED IN TOILET AND ASSISTED TO BATHROOM-DURING PROCESS BECAME COMBATIVE SCREAMING LOUDLY-DIGGING NAILS INTO NURSING STAFFS ARM-REFUSED AND PO MEDICATIONS AND REFUSED AM HALDOL-HALDOL 2 MG IM ALONG WITH ATIVAN 1MG IM FOR INCREASED AGITATION AND PHYSICALLY COMBATIVE BEHAVIOR.
[2020-05-26 19:32] VITALS: BP 148/73
--- NOTE | 2020-05-27 03:14 | NUR ---
Assumed pt care at 1930. Pt is alert and is seen sitting in the common room.Pt is unable to respond to any question asked. Pt is confused. No sign of distress noted in pt. Unable to verbalize any needs. Assessment completed and documented. Fall precaution in place. Scheduled meds administered to pt. Tolerated PO intake. No acute events overnight. Continue to monitor pt. No further needs at this time.
[2020-05-27 06:51] LABS: URINE BILIRUBIN NEGATIVE (Negative); URINE BLOOD 3+ (Negative); URINE CLARITY CLEAR; URINE COLOR YELLOW; URINE GLUCOSE-RANDOM* NEGATIVE (Negative); URINE KETONES 1+ (Negative); URINE PROTEIN (DIPSTICK) TRACE (Negative); URINE SPECIFIC GRAVITY >= 1.030 (1.005-1.035); URINE UROBILINOGEN 0.2 E.U./dl (0.2-1.0)
[2020-05-27 07:01] LABS: URINE LEUKOCYTES-REFLEX 2+ (Negative); URINE NITRITE-REFLEX POSITIVE (Negative)
[2020-05-27 07:21] LABS: CASTS None Seen /LPF (None Seen); MUCUS >6 Heavy strn/LPF (None Seen); SQUAMOUS 4-10 Moderate /LPF (0-3)
[2020-05-27 07:22] LABS: BACTERIA-REFLEX >30 Many /HPF (None Seen); CRYSTALS None Seen /LPF (None Seen); URINE RBC 0-2 Rare /HPF (0-2); URINE WBC-REFLEX >25 Many /HPF (0-5)
[2020-05-27 07:25] VITALS: BP 112/62
--- NOTE | 2020-05-27 12:53 | NUR ---
SKY contacted Emilie about NH options. She said she did not receive the listing SKY sent via email. She asked SKY to send it to .[employer]. SKY did so. Emilie said she will review when she gets home. SKY team will continue to follow pt during her stay on this unit.
--- NOTE | 2020-05-27 13:00 | NUR ---
Late note-B12 not available in xis. When it arrived and presented to pt. she was somnolent, med refused/unable to give to her. She tries to take chair alarm out.
--- NOTE | 2020-05-27 14:30 | NUR ---
Assumed care 0700. Did not eat breakfast. Ate a couple of bites of chicken for lunch. Somnolent the rest of the time. Currently resting in bed with 4 siderails up, bed locked down, bed alarm on. Thus far, no offered complaints or concerns.
--- NOTE | 2020-05-27 19:50 | NUR ---
Was fed dinner by staff. Before dinner drank most of grape juice = ate 1 applesauce. After nap patient got up walked around bed entirely-even behind the head of the bed with no stated reason then started to wander into others rooms. will not answer questions of this RN. whispers/mumbles making no sense. Was shaking/tremulous on upper extremities. Checked several times with prompts to use toilet and declined/didn't answer.
[2020-05-27 20:07] VITALS: BP 160/89
--- NOTE | 2020-05-28 00:36 | NUR ---
Assumed care on 05/27/20 @ 19:30, seated in raymond chair in day room. Incontinent of bladder, toileted and redressed in clean brief and hospital pants. Uncooperative and resistive to care. PRN Lorazepam 1mg PO provided @ 20:49 for resistance to care. Retired to bed @ HS, patient awakened @ 22:30 and took brief and pants off, then ambulated to another patient's room and tried to lay down in peer's room. Guided back to own room and own bed, incontinent care provided and redressed. IM 1mg Haldol provided to R Delt, tolerated well. Able to calm after IM and returned to sleep, bed in low position, bed alarm set, will continue to monitor as per protocol for patient safety and comfort.
[2020-05-28 03:14] VITALS: BP 160/89
--- NOTE | 2020-05-28 08:19 | NUR ---
RT Progress Note- Laura has not been active in the milieu or recreation groups since admission d/t cognition. She is primarily non verbal with the exception of few nonsensical comments. She lacks the attention span and understanding to follow tasks offered. She has not displayed aggression or agitation during RT interaction.
[2020-05-28 09:17] VITALS: BP 125/52
--- NOTE | 2020-05-28 11:58 | NUR ---
SW received an email from [facility] with options to send referrals for pt to: 1. [facility] - referral sent 05/28/20 2. [facility] - referral sent . [facility] - referral sent . [facility] - Does not have memory care. 5. [facility] - referral sent . [facility] - referral sent 05/28/20 SW team will continue to follow pt during her stay on this unit.
--- NOTE | 2020-05-28 17:20 | NUR ---
0700 ASSUMED CARE OF PATIENT, PATIENTASLEEP AT THAT TIME. PATIENT IN DAYROOM IN ANGELA CHAIR. PATIENT DIFFICULT TO WAKE UP FOR BREAKFAST. PATIENT NOTED SLEEPING AT TIMES MEDICATIONS GIVEN CRUSHED IN JELLY. PT REFUSING FLUIDS AND FOOD AT THAT TIME. PATIENT RECIEVED SHOWER TODAY. AFTER SHOWER APTIENT SLEEPS IN GERICHAIR. PATIENT ASSISTED WITH DINNER ATE 30% OF MEAL PATIENT AWAKE AND CALM. PATIENT DOES NOT ANSWER WRITERS QUESTIONS. PATIENT TALKS WITH A WHISPER AND DIFFICULTY UNDERSTANDING. WILL CONTINUE TO OBSERVE
[2020-05-28 20:43] VITALS: BP 117/62
--- NOTE | 2020-05-28 23:37 | NUR ---
Assumed care on 05/28/20 @ 19:15, seated in a raymond chair in the day room, Alert and Oriented to person only, confusion and cognitive decline noted. Pleasant affect noted. Ate snack %100. Cooperated with assessment: HRRR, Lungs auscultate clear breath sounds, ABD normoactive BS. Took crushable meds in jelly, unable to crush Divalproex Sodium ER, patient was able to take those whole in jelly. Will continue to monitor as per protocol.
[2020-05-29 01:01] VITALS: BP 117/62
[2020-05-29 07:46] VITALS: BP 103/63
--- NOTE | 2020-05-29 11:36 | NUR ---
SKY received a vm from [facility] denying pt's referral due to not accepting ltc admissions at this time. SW team will continue to follow pt during her stay on this unit.
--- NOTE | 2020-05-29 14:14 | NUR ---
0700 ASSUMED CARE OF PATIENT. PATIENT IN BED AT THAT TIME. PATIENT UP TO ANGELA CHAIR AND TO DAYROOM. PATIENT SLEEPING IN GERICHAIR AND UNABLE TO ANSWER QUESTIONS. MEDICATIONS GIVEN IN APPLESAUCE. PATIENT AWAKE LONG ENOUGH TO EAT SOME BREAKFAST. PATIENT SLEEPS OFF AND ON. AWAKE AND ALERT AT THIS TIME. PATIENT NOTED TALKING TO SELF. WILL CONTINUE TO OBSERVE
[2020-05-29 20:00] VITALS: BP 131/63
--- NOTE | 2020-05-30 05:41 | NUR ---
Assumed care on 05/29/20 @ 19:30, seated in the day room in a raymond chair, feeding herself ice cream and spilling the bottom half of the cup. Happy and pleasant affect noted. Confused and oriented to person only. Cooperated with assessment, VSS, Breath sounds CTA, HRRR, ABD N x 4 Q. Alternately closed eyes throughout the night and awakend for periods of time. Takes meds crushed in pudding. Toileted as needed, is incontinent of bladder. Continues on Cipro.
[2020-05-30 05:47] VITALS: BP 131/63
[2020-05-30 07:40] VITALS: BP 97/58
--- NOTE | 2020-05-30 13:41 | NUR ---
PATIENT IN DINING AREA ALL DAY. RESTLESS AND SITUATED IN ANGELA CHAIR. BALANCE OFF WHEN AMBULATING - ALICE BELT AND ASSIST NECESSSARY. ANSWERS SOME QUESTIONS RATIONALLY ABOUT FAMILY BUT THEN THOUGHT PATTERN WANDERS. CALLED OUT FOR HER MOM - RELUCTANT TO TAKE MEDICATIONS IN APPLESAUCE. NEEDED ALOT OF ENCOURAGEMENT- AFFECT APPEARS ANNOYED AND MOOD IRRITABLE. APPEARS ALERT TO SELF ONLY AT THIS TIME.
[2020-05-30 19:05] VITALS: BP 103/43
[2020-05-30 22:23] VITALS: BP 103/43
--- NOTE | 2020-05-31 03:11 | NUR ---
Assumed care of patient this pm shift. Patient sitting in mileu in raymond chair. Patinent is calm and cooperative. Patient denies pain. Patient denies si. Patient is pleasantly confused, alert and oriented to self only. Patient is considered a falls risk and has on the yellow shirt. Patient took medications crushed in applesauce with sugar added for flavor. Patient is continent of bowel and bladder only some of the time. Patients assessment shows no signs of acute distress. Patients affect is flat. Patient did not voice any concerns this evening. We will continue to monitor per hospital protocol.
[2020-05-31 07:31] VITALS: BP 115/50
--- NOTE | 2020-05-31 11:08 | NUR ---
PATIENT CARE ASSUMED AT 0700 - PATIENT EXTREMELY RESTLESS AND IRRITABLE. BREAKFAST SERVED AND PATIENT DUMPED FOOD ON LAP AND PUT SOCK ON HER DISH. FOUND WITH SOCK STUFFED IN MOUTH. REDIRETED AND PATIENT VERY RESISTIVE - EXTREMELY CONFUSED - VERBILIZATION AND THOUGHT PROCESSES COMPLETELY JUMBLED. DOES NOT RESPOND TO QUESTIONS ADDRESSED TO HER RATIONALLY. POOR APPETITE - MREFUSED HER BREAKFAST. DID TAKE HER MORNING MEDICATIONS CRUSHED IN APPLESAUCE BUT WITH ALOT OF ENCOURAGEMENT. PATIENT ALERT TO SELF ONLY. OBSERVED TALKING TO SELF - POOR EYE CONTACT - APPEARS DAZED - PATIENT DID NOT SLEEP AT ALL LAST EVENING. UP IN DINING TAN EVENING. AFFECT BLUNTED AND FLAT AND MOOD TENSE AND DETACHED. REMAINS IN ANGELA CHAIR IN DINING TAN -
--- NOTE | 2020-05-31 18:27 | NUR ---
Received messages from: - no female beds. [facility]- no beds on secure memory care unit.
[2020-05-31 19:35] VITALS: BP 116/51
--- NOTE | 2020-06-01 | NUR ---
ASSUMED PT CARE AT 1900.PT WAS OBSERVED SITTING IN THE RECLINER IN THE DAY ROOM WITH A LAP ROBI AT START OF SHIFT.PT FINALLY WENT TO BED BUT WAS NOT ABLE TO STAY IN BED.PT CONSATNTLY GETS UP FROM HER BED AND SETS THE ALARM.ATTEMPTS MADE TO HELP PT SETTLE DOWN FAILED.PT GETTING MORE AGITATED,PRN MED GIVEN.PT CALM AT THIS TIME.PT IN THE RECLINER WITH CHAIR ALARM ON AND A LAP ROBI IN THE DAY ROOM.FREQUENT MONITORING MAINTAINED.REPORT GIVEN TO THE NURSE RELIEVING ME.
--- NOTE | 2020-06-01 06:22 | NUR ---
Assumed pt's care @ 2300. Pt was in the dayroom all through shift. Pt slept 5.6 hours, off and on. Pt took morning med crushed in applesauce with extra sugar. Will continue to monitor.
--- NOTE | 2020-06-01 13:32 | NUR ---
SKY faxed referrals to and received responsed about followin. [facility] - left msg for admissions 06/01?7. [facility] - Referral sent . [facility] - Referral sent . [facility] - Referral sent 05/2410. [facility] - Referral sent 05/2411. [facility] - Referral sent 06/01. [facility] also denied pt's referral due to not having any beds. SW team will continue to follow pt during her stay on this unit.
[2020-06-01 19:48] VITALS: BP 99/47
--- NOTE | 2020-06-02 06:01 | NUR ---
06-01-20 CARE TRANSFERED AT 1915 OBSERVED PT SITTING IN RECLINER IN DAY ROOM. 2004 PT AAOX1, VSS, RR EVEN AND NONLABORED ON RA, PT DENIES PAIN, AND SI/SH/HI/VAH. PT HAD NO DIFFICULTIES DURING MEDICATION ADMIN. THROUGHOUT NURSING ROUNDS ZERO S/S OF ACUTE DISTRES NOTED, PT WILL CONTINUE TO BE MONITOR PER [facility] PROTOCOL.
[2020-06-02 09:06] VITALS: BP 104/51
--- NOTE | 2020-06-02 10:09 | NUR ---
0700 ASSUMED CARE OF PATIENT PATIENT SITTING IN ANGELA CHAIR IN DAYROOM AT THAT TIME. 0810 MEDICATIONS GIVEN CRUSHED IN APPLESAUCE, PATIENT REFUSING BREAKFAST AND ONLY EATING APPLESAUCE AT THAT TIME. AFTER BREAKFAST PATIENT UP AMBULATING IN TAN SLOW WITH STEADY GAIT. PATIENT WANDERING TAN LOOKING FOR OPEN DOORS. WILL CONTINUE TO OBSERVE
[2020-06-02 19:13] VITALS: BP 133/77
--- NOTE | 2020-06-03 05:37 | NUR ---
06-02-20 CARE TRANSFERED AT 1915 OBSERVED PT IN DAY ROOM IN RECLINER. 1954 PT PRESENTED PLEASANT, AAOX1, VSS, RR EVEN AND NONLABORED ON RA. PT DENIES ANY PAIN, SI/HI. PT REMAINED CALM AND COOPERATIVE THROUGHOUT NURSING ASSESSMENT. DURNG MEDICATION ADMIN NO DIFFICUTIES. ZERO S/S OF ACUTE DISTRESS NOTED, WILL CONTINUE TO MONITOR PER [facility] PROTOCOL.
[2020-06-03 06:26] LABS: HEMATOCRIT 38.6 % (37.0-47.0); HEMOGLOBIN 12.9 gm/dL (12.0-15.0); MCH 29.7 pg (26.0-34.0); MCHC 33.3 g/dL (28.0-37.0); MCV 89.1 fL (80.0-100.0); PLATELET COUNT 340 thou/uL (150-400); RBC 4.33 mil/uL (4.20-5.00); RDW 13.3 % (10.5-14.5); WBC 6.8 thou/uL (4.0-11.0)
[2020-06-03 07:01] LABS: ALBUMIN 3.5 g/dL (3.4-5.0); CALCIUM 8.7 mg/dL (8.5-10.1); CREATININE 0.6 mg/dL (0.6-1.0); MAGNESIUM 2.1 mg/dL (1.8-2.4); POTASSIUM 3.9 mmol/L (3.5-5.1); TOTAL BILIRUBIN 0.4 mg/dL (0.2-1.0); TOTAL PROTEIN 6.5 g/dL (6.4-8.2)
[2020-06-03 09:13] VITALS: BP 123/72
[2020-06-03 09:46] LABS: ABSOLUTE NEUTROPHILS 3.7 thou/uL (1.4-8.2)
[2020-06-03 09:47] LABS: ANISOCYTOSIS SLIGHT
--- NOTE | 2020-06-03 10:51 | NUR ---
0700 ASSUMED CARE OF PATIENT , PATIENT IN GERICHAIR AT THAT TIME WITH EYES CLOSED. 0800 PATIENT NOT WANTING TO EAT BREAKFAST, ONLY ATE A FEW BITES. MEDICATION GIVEN CRUSHED WITHOUT DIFFICULTY. PATIENT CONTINUES TO SLEEP OFF AND ON IN CHAIR.
[2020-06-03 12:50] VITALS: BP 123/72
--- NOTE | 2020-06-03 14:43 | NUR ---
SKY sent a referral to [facility]. SKY received a call from Irma asking her to call [phone]. SKY did so and Irma asked for pt's DCN and said they are considering pt's referral. SW team will continue to follow pt during her stay on this unit.
[2020-06-03 20:14] VITALS: BP 114/59
--- NOTE | 2020-06-04 05:00 | NUR ---
06-03-20 CARE TRANSFERED 1914 OBSERVED PT SITTING IN RECLINER IN DAY ROOM. 2054 PT AAOX1, VSS, RR EVEN AND NONLABORED ON RA, WHEN ASKING PT ABOUT PAIN SHE DENIES AND SI/HI, POSSIBLE NOT UNDERSTANDING QUESTIONS, BUT NO S/S OF PAIN NOTED, PT WAS CALM AND COOPERATIVE DURING NURSING ASSESSMENT AND TALKING ABOUT A VARIETY OF THINGS IN A [place] VOICE. DURING MEDICATION PT HAD NO DIFFICUTIES. ZERO S/S OF ACUTE DISTRESS NOTED, PT WILL CONTINUE TO BE MONITOR PER [facility] PROTOCOL.
[2020-06-04 09:16] VITALS: BP 112/90
--- NOTE | 2020-06-04 10:05 | NUR ---
SKY spoke with Irma with [facility] who said she cannot confirm pt's Medicaid with the number that SKY gave her. Irma said if they can confirm pt's Medicaid the will accept pt's referral. SKY contacted Ramírez with [employer] who also said she could not confirm this either. SKY and Dr. Jurado contacted Garo with the [employer] firm that Emilie is consulting with who said he would fax over the award letter from [place] Medicaid. SKY team will continue to follow pt during her stay on this unit.
[2020-06-04 19:59] VITALS: BP 96/71
--- NOTE | 2020-06-05 04:13 | NUR ---
Pt. rested quietly at intervals during the night in the recliner chair. She is oriented times one. Offers no complaints and cooperative with cares.
[2020-06-05 08:30] VITALS: BP 116/77
--- NOTE | 2020-06-05 09:20 | NUR ---
PT SITTING OUT IN DINING ROOM. PT SITTING IN ESTUARDO CHAIR. PT STANDING UP WITH NURSE ASSIST. PT TRYING TO WALK. PT WALKED WITH STAFF A FEW STEPS THEN WENT BACK TO RECLINER AND TAKEN TO ROOM. PT BRIEF CLEAN AND DRY. PT NEEDS ASSISTANCE WITH FEEDING AND DRINKING. PT UNABLE TO FEED SELF.
[2020-06-05] MEDS ORDERED: DEPAKOTE SPRIN125 MG PO (11:33)
[2020-06-05] MEDS ORDERED: HALOPERIDOL 1 MG1 MG PO (11:33)
[2020-06-05] MEDS ORDERED: LORAZEPAM 1 MG T1 MG PO (11:34)
[2020-06-05] MEDS ORDERED: B-12500 MCG PO (11:34)
[2020-06-05] MEDS ORDERED: PEPCID20 MG PO (11:34)
[2020-06-05] MEDS ORDERED: SYNTHROID50 MCG PO (11:34)
[2020-06-05] MEDS ORDERED: HALOPERIDOL5 MG/1 ML IM (11:35)
--- NOTE | 2020-06-05 11:55 | NUR ---
SW D/C NOTE SKY faxed pt d/c docs, [id number], AND letter from Medicaid to [facility]. SKY will file these docs in hospital file with confirmation page. No other needs for SW team to address at this time.
--- NOTE | 2020-06-05 12:26 | NUR ---
PT GETTING READY TO DISCHARGE TO [facility]. PT DRANK HALF OF ENSURE ENLIVE FOR LUNCH. PT TOOK MEDS THIS AM CRUSHED WITH PUDDING.
--- NOTE | 2020-06-05 12:29 | NUR ---
ATTEMPTED TO GIVE REPORT TO CENTER. NO ANSWER BUSY SIGNAL. ATTEMPTED X2.
--- NOTE | 2020-06-05 12:39 | NUR ---
PT LEFT VIA W/C VAN.
== END 2020-06-05 12:48 | DRG 57 ==
LOC: ER 11:25 → SBH 17:03
PROVIDERS: Emergency Medicine; Hospitalist; Internal Medicine; Nurse Practitioner; ADMIT Psychiatry & Neurology Psychiatry; ATTEND Psychiatry & Neurology Psychiatry
DX: G30.9 Alzheimer's disease, unspecified (principal); F02.81 Dementia in other diseases classified elsewhere, unspecified severity, with behavioral disturbance; E87.0 Hyperosmolality and hypernatremia; N39.0 Urinary tract infection, site not specified; E27.40 Unspecified adrenocortical insufficiency; E46 Unspecified protein-calorie malnutrition; R45.1 Restlessness and agitation; F29 Unspecified psychosis not due to a substance or known physiological condition; E06.3 Autoimmune thyroiditis; E03.9 Hypothyroidism, unspecified; E87.5 Hyperkalemia; E83.42 Hypomagnesemia; J34.89 Other specified disorders of nose and nasal sinuses; F41.9 Anxiety disorder, unspecified; G47.00 Insomnia, unspecified; B96.20 Unspecified Escherichia coli [E. coli] as the cause of diseases classified elsewhere; Z90.49 Acquired absence of other specified parts of digestive tract; Z72.89 Other problems related to lifestyle; Z87.891 Personal history of nicotine dependence; Z68.23 Body mass index [BMI] 23.0-23.9, adult
CPT/HCPCS: 10880